=== PATIENT | male | born 1955 | race Caucasian/White ===

== ENCOUNTER 2020-08-12 14:44 | Outpatient (REF) | payer OTHER, SELFPAY ==
[2020-08-12 21:15] LABS: Calculated LDL 177 mg/dL (<100); Cholesterol 249 mg/dL (<200); HDL Cholesterol 47 mg/dL (40-60); Triglyceride 125 mg/dL (<150)
[2020-08-15 10:53] LABS: PSA, Screening 1.2 ng/mL (0.0-4.5)
== END 2020-08-12 15:04 ==
LOC: LBN 14:44
PROVIDERS: PCP Emergency Medicine; Visit Provider Emergency Medicine
DX: E78.5 Hyperlipidemia, unspecified (principal); Z12.5 Encounter for screening for malignant neoplasm of prostate
CPT/HCPCS: 80061; 84153

== ENCOUNTER 2021-08-15 18:38 | Outpatient (REF) | payer OTHER, SELFPAY ==
[2021-08-15 20:10] LABS: Calculated LDL 169 mg/dL (<100); Cholesterol 245 mg/dL (<200); HDL Cholesterol 52 mg/dL (40-60); Triglyceride 120 mg/dL (<150)
== END 2021-08-15 18:39 | disposition home or self-care (01) ==
LOC: LBN 18:38
PROVIDERS: PCP Emergency Medicine; Referring Provider Emergency Medicine; Visit Provider Emergency Medicine
DX: E78.5 Hyperlipidemia, unspecified (principal)
CPT/HCPCS: 80061

== ENCOUNTER 2022-02-24 06:42 | Emergency (ER) | payer MEDICARE, SELFPAY ==
[2022-02-24] VITALS (47 sets, daily range): BP systolic 100–161; BP diastolic 57–103; PULSE 42–87; RESP 8–25; TEMP 36.3; O2SAT 93–100
--- NOTE | 2022-02-24 06:30 | RT.EKG_ITS ---
APPROVED REPORT Exam: Resting ECG Reason for Exam: chest pain Patient Location: E HR:71 bpm ECG Measurements Heart Rate 71 AXIS FL 162 P 59 QRSd 112 QRS 49 QT 421 T 74 QTc 456 Conclusion Sinus rhythm...normal P axis, V-rate 60- 99 sinus rhtyhm, normal axis, non ischemic
--- NOTE | 2022-02-24 06:45 | DI.RAD_ITS ---
Exam(s) XR PORTABLE CHEST AP EXAM: XR PORTABLE CHEST AP CLINICAL HISTORY: chest pain, left sided TECHNIQUE: 2D digital imaging was performed. COMPARISON: CR CHEST 2 VIEWS PA,LAT from 02/13/2016 FINDINGS: LUNGS: Suboptimally inflated but clear. No pleural abnormality seen. HEART: Normal. MEDIASTINUM: Normal. BONES: Unremarkable. IMPRESSION: No acute pulmonary findings. DATA REPOSITORY: RADIATION DOSE DELIVERED:
--- NOTE | 2022-02-24 07:02 | W.ED.GENAD ---
Discharge Plan Disposition Patient Disposition: STILL A PATIENT Condition: Stable Discharge Details Chief Complaint: Chest Pain Primary Care Provider: Nick Alfonso ED Provider: Alireza Barber Home Meds and New Rx's Prescriptions: No Action multivitamin [Daily Multi-Vitamin] 1 EACH tablet 2 ea PO DAILY 0RF omeprazole magnesium [Prilosec OTC] 20 MG tablet,delayed release (DR/EC) 1 tab PO DAILY Qty: 90 4RF tadalafil [Cialis] 10 MG tablet 10 mg PO PRN Qty: 8 12RF amlodipine 5 mg tablet 2.5 mg PO DAILY Qty: 45 4RF hydrochlorothiazide 25 mg tablet 25 mg PO DAILY Qty: 90 3RF sertraline 50 mg tablet 75 mg PO DAILY Qty: 135 3RF Medical Decision Making 66-year-old male history of hypertension hyperlipidemia, moderate risk heart score presents with left anterior chest discomfort for the last day radiating to left arm, denies nausea diaphoresis vomiting or trouble breathing. No history of PE or IN. No peripheral edema. Lung sounds clear bilaterally no respiratory distress, equal radial pulses bilaterally, hypertensive on arrival; consider ACS skin skeletal versus anxiety versus less likely pneumonia or pneumothorax versus less likely dissection. Nitro and aspirin to be ordered, labs chest x-ray EKG, 7: 49 patient was given nitro did drop his blood pressure to 100 systolic, became pale and presyncopal, started improved blood pressure on his own got much better after fluid bolus. Patient does describe chest pain going to his back, CTA has been ordered with a protocol to assess for both dissection and PE. HPI General Date/Time Provider Initiated Documentation: 02/24/22 06:49. HPI Narrative: 66-year-old male history of hypertension presents with over 1 day of left-sided chest discomfort rating to left arm, denies trouble breathing nausea vomiting abdominal pain or other systemic symptoms. Denies history of IN. Related Data Home Medications Medication Instructions Recorded Confirmed multivitamin (Daily Multi-Vitamin) 2 ea PO DAILY 05/15/13 02/24/22 omeprazole magnesium 20 mg 1 tab PO DAILY #90 tab-cap 09/21/14 02/24/22 tablet,delayed release (Prilosec OTC) tadalafil 10 mg tablet (Cialis) 10 mg PO PRN #8 tab 12/11/17 08/12/20 amlodipine 5 mg tablet 2.5 mg PO DAILY #45 tab-cap 03/29/21 02/24/22 hydrochlorothiazide 25 mg tablet 25 mg PO DAILY #90 tab-cap 03/29/21 02/24/22 sertraline 50 mg tablet 75 mg PO DAILY #135 tab-cap 11/02/21 02/24/22 Previous Rx's Medication Instructions Recorded tadalafil 10 mg tablet (Cialis) 10 mg PO PRN #8 tab 12/11/17 amlodipine 5 mg tablet 2.5 mg PO DAILY #45 tab-cap 03/29/21 hydrochlorothiazide 25 mg tablet 25 mg PO DAILY #90 tab-cap 03/29/21 sertraline 50 mg tablet 75 mg PO DAILY #135 tab-cap 11/02/21 Allergies Allergy/AdvReac Type Severity Reaction Status Date / Time Penicillins Allergy Severe HIVES Verified 02/24/22 07:01 General Stated Complaint: Chest Pain REBECCA: 2 Review of Systems Narrative: Review of Systems Constitutional: negative Eyes: negative ENT: negative Cardiovascular: Chest pain Respiratory: negative Gastrointestinal: negative : negative Musculoskeletal: negative Skin: negative Neurologic: negative Psych: negative PFSH All Active Problems (Updated 12/18/21 @ 10:17 by Sarah Oscar RN) COVID-19 (Acute ~12/16/21) Cat bite (Acute) Elevated lipids (Acute) Rash (Acute) Status post cholecystectomy (Acute) Seborrheic dermatitis (Chronic) Hiatal hernia (Chronic) Gastroesophageal reflux disease with esophagitis (Chronic) Family hx of prostate cancer (Chronic) Degeneration of lumbar intervertebral disc (Chronic) Chest pain (Chronic 07/12/13) Ruled out for IN by serial enzymes. Norml EGK. Modrate cardiac risk factor profile. Benign hypertension (Chronic) Cole's esophagus (Chronic) Osteoarthritis of spine (Chronic) Hearing loss (Chronic) Left sie. Allergy to penicillin (Chronic) History of surgery (Chronic) Cholecystectomy in the 1980s. Surgical History (Updated 08/18/19 @ 08:24 by Víctor Coon) Cholecystectomy (~1987) Family History (Updated 08/15/21 @ 15:51 by Lulu Mejia) Mother Heart disease Lymphoma Father , 80 Essential hypertension Depression Hyperlipidemia Neoplasm SKIN Stroke Grandfather Neoplasm COLON Grandmother Depression Social History (Updated 08/15/21 @ 15:52 by Lulu Benitez Smoking/Tobacco Use Status: Never Second Hand Exposure: Yes Smoking risk assessment performed?: Yes Alcohol Intake: current Alcohol Intake frequency: a few times a week Alcohol type: beer and hard liquor Drug use: Never Substance use type: does not use Caregiver/Support person: No Household members: spouse Communication Needs: Hard of Hearing Do you need help understanding health information?: Rarely 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 Pets and animals: Yes Pets and animals: cat(s) Sexually active: Yes Do you think of yourself as: straight/heterosexual Current gender identity: male What is your relationship status?: How often do you talk on the phone with friends or family?: twice per week How often do you get together with friends or relatives?: once per week How often do you attend pentecostalism or uatsdin services?: decline to answer Do you belong to any clubs or organized social groups?: no Panel score (0-1 are the most socially isolated patients): 2 Kristina/Presybeterian: Taoist Special kristnia needs: No Seatbelt use: always Helmet use: Yes Helmet use: always Drive intox or ride w/intox straddle bug driver: No Do you feel safe at home: Yes Do you feel safe in your relationship?: Yes Exam Narrative Exam Narrative: Physical Examination General: alert, awake, cooperative, resting comfortably, no acute distress HEENT: normocephalic, atraumatic; PERRL, EOM intact, conjunctiva normal; no nasal discharge; moist mucous membranes, oral and pharyngeal mucosa normal, tolerating secretions Neck: supple, trachea midline; full ROM Chest: normal to inspection Respiratory: normal respiratory effort, speaking in full sentences, clear to auscultation, no wheezing, rales or rhonchi Cardiac: regular rate, regular rhythm, S1S2 intact, no murmurs rubs or gallops; equal radial pulses bilaterally GI: abdomen soft, non-tender, non-distended; no palpable mass or hepatosplenomegaly Warm well perfused, no peripheral edema Skin: no lesions, rashes or trauma appreciated Neuro: AAOx3, normal speech, moving all extremities Extremities: Warm well perfused no peripheral edema Psych: Appropriate mood and affect Course Vital Signs Vital signs: Vital Signs Temperature 36.3 C L 02/24/22 06:45 Pulse 69 02/24/22 06:45 Respiratory Rate 18 02/24/22 06:45 Blood Pressure 153/102 H 02/24/22 06:45 Pulse Oximetry 95 02/24/22 06:45 Temperature 36.3 C L 02/24/22 06:45 Temperature Source Temporal Artery Scan 02/24/22 06:45 Pulse 69 02/24/22 06:45 Respiratory Rate 13 02/24/22 06:48 Respiratory Effort Non-Labored 02/24/22 06:48 Respiratory Depth Normal 02/24/22 06:48 Respiratory Pattern Normal 02/24/22 06:48 Blood Pressure 153/102 H 02/24/22 06:45 Blood Pressure Position Supine 02/24/22 06:45 Pulse Oximetry 95 02/24/22 06:45 Oxygen Delivery Method Room Air 02/24/22 06:45 Oxygen Flow Rate 0 02/24/22 06:45 Pain Level 7 02/24/22 06:48 PAWSS Have you Been Recently Intoxicated or Drunk Within the Last 30 days?: No Have you Ever Experienced Previous Episodes of Alcohol Withdrawal?: No Have you ever Experienced Withdrawal Seizures?: No Have you ever Experienced Delirium Tremens(DT)s?: No Have you ever undergone Alcohol Rehabilitation Treatment (i.e, inpt ot outpatient treatment programs)?: No Have you ever Experienced Blackouts?: No Have you ever Combined Alcohol with other Downers within the last 90 days?: No Have you ever Combined Alcohol with any other Substance of Abuse during the last 90 days?: No Positive Blood Alcohol level on Presentation? [PCS.BAL]: No Evidence of Increased Autonomic Activity (i.e. HR>120, tremor, sweating, agitation, nausea)?: No Result: 0
[2022-02-24] MEDS: Aspirin 325 MG TAB PO (07:07)
[2022-02-24] MEDS: nitroGLYcerin 0.4 MG TAB SL (07:07)
[2022-02-24 07:10] LABS: Abs Immature Grans 0.01 10^3/uL (0.0-0.06); Absolute Basophil Count 0.03 10^3/uL (0.0-0.2); Absolute Eosinophil Count 0.14 10^3/uL (0.0-0.7); Absolute Lymphocyte Count 1.66 10^3/uL (1.2-3.4); Absolute Monocyte Count 0.49 10^3/uL (0.1-0.8); Absolute Neutrophil Count 2.96 10^3/uL (1.2-6.7); Basophils % 0.6; Eosinophils % 2.6; HCT 39.2 % (40.0-50.0); Immature Grans % 0.2; Lymphocytes % 31.4; MCH 28.7 pg (27.0-33.0); MCHC 33.2 % (32.0-36.0); MCV 86.5 fL (80-95); MPV 9.3 fL (8.0-11.0); Monocytes % 9.3; Neutrophils % 55.9; Nucleated RBC 0 %; Platelet Count 307 10^3/uL (130-400); RBC 4.53 10^6/uL (4.36-5.78); RDW 13.2 % (11.8-14.1); RDW-SD 41.3 fL; WBC 5.29 10^3/uL (4.4-10.8)
[2022-02-24] MEDS: Normal Saline 500 ML 1000 ML IV (07:15)
--- NOTE | 2022-02-24 07:15 | DI.CT_ITS ---
Exam(s) CT THORAX CTA EXAM: CT THORAX CTA CLINICAL HISTORY: chest pain to back, hypertense. TECHNIQUE: Imaging Protocol: Axial CT angiography was performed with multi-slice acquisition and mu lti-planar and/or 3D reconstructions. CONTRAST MATERIAL: Intravenous: Omnipaque 350 Contrast volume:99 ml COMPARISON: CR,XR XR PORTABLE CHEST AP from 02/24/2022 FINDINGS: Pulmonary Arteries: No evidence of filling defect to suggest pulmonary emboli. Tracheobronchial tree: Patent where visualized. Mediastinum and Rebeca: No dominant adenopathy or fluid collection. Pulmonary parenchyma: Expiratory changes. No consolidation or dominant measurable mass. Pleura: No effusion or pneumothorax. Heart: The heart is mildly dilated. Mild coronary artery calcifications are seen. Aorta: Thoracic aorta non-dilated. No aneurysm. No dissection. Upper abdomen: Status post cholecystectomy. Bones: Degenerative changes with flowing osteophytes. IMPRESSION: No evidence of pulmonary embolism or other acute abnormality.. RADIATION DOSE DELIVERED: 411.96mGy.cm Total DLP DATA REPOSITORY: All CT scans at this facility are submitted to the National Radiology Data Registry (NRDR) Dose Index Registry (DIR) with the [employer] (A[employer]). RADIATION OPTIMIZATION: All CT scans at this facility use at least one of these dose optimization te chniques: automated exposure control; mA and/or kV adjustment per patient size (includes targeted exa ms where dose is matched to clinical indication); or iterative reconstruction.
[2022-02-24 07:32] LABS: PTT Activated 23.5 sec (21.0-27.5)
[2022-02-24 07:33] LABS: ALT 56 U/L (16-63); AST 29 U/L (15-37); Alkaline Phosphatase 72 U/L (46-116); Anion Gap 7.3 mmol/L (3-11); BUN 21 mg/dL (7-18); Bilirubin, Total 0.4 mg/dL (0.2-1.0); CO2 28.7 mmol/L (21.0-32.0); CREATININE 1.1 mg/dL (0.70-1.30); Chloride 106 mmol/L (98-107); Glucose 135 mg/dL (74-106); NT-proBNP 106 pg/mL (<300); Potassium 3.8 mmol/L (3.5-5.1); Sodium 142 mmol/L (136-145); Total Protein 7.6 g/dL (6.4-8.2); Troponin I < 50 ng/L (<or=60)
--- NOTE | 2022-02-24 07:45 | RT.EKG_ITS ---
APPROVED REPORT Exam: Resting ECG Reason for Exam: chest pain Patient Location: E HR:63 bpm ECG Measurements Heart Rate 63 AXIS TN 193 P 58 QRSd 109 QRS 46 QT 434 T 99 QTc 443 Conclusion Sinus rhythm...normal P axis, V-rate 60- 99 Inferior infarct, acute...ST>0.10mV, T upright, II III aVF. Sinus. ++INFERIOR STEMI++. Reciprocal depressions in I and aVL. I have reviewed and interpreted ECG and agree with software generated interpretation.
[2022-02-24] MEDS: MORPHine 4 MG/ML SYR 2 MG IVP (07:50)
[2022-02-24] MEDS: Ondansetron 4 MG/2 ML VIAL IVP (07:50)
--- NOTE | 2022-02-24 08:19 | W.EDPROG ---
Date of service: 02/24/22 Time of Service: 08:00 Medical Decision Making 0800 -- Please see Dr. Barber's note for initial presentation, exam, and plan. Case endorsed to follow-up on labs and imaging and final disposition. 66yo M with a history of hypertension and hyperlipidemia who presents for left-sided chest pain with radiation to his back and left arm since yesterday afternoon. Denies any tearing or ripping sensation. He denies any associated nausea, vomiting, shortness of breath or dizziness. He took 2 tabs of strength Tylenol this morning but otherwise not taking any medication. He denies any aggravating or alleviating factors and states his pain started yesterday afternoon while sitting at rest. does endorse that his pain worsened this morning. Shortly after my arrival to the ED, patient noted to have increased ST elevation on the monitor. Repeat EKG done at this time's notes an inferior STEMI. First troponin negative. Normal BNP. Plavix and heparin bolus and drip ordered. Portable chest x-ray does appear to show a widened mediastinum. Virtual radiology read pending. Will hold heparin bolus and drip at this time pending scan. Will send for stat CT chest. Patient is endorsing increased pain, another dose of morphine 2 mg IV ordered. He remains hemodynamically stable with a heart rate of 70s, BP 113/72. 0820 --discussed with [facility] cardiology agree with holding heparin bolus and drip at this time pending scan. No beta blockers or nitro at this time. 0845 --CTA read still pending, vrad noting higher than average turnaround times -- d/w again with [facility] cardiology -- continue to hold on heparin pending CTA read. 09 -- long delay in obtaining CTA read due to higher turnaround times for vrad. Able to speak with virtual radiologist Dr. Hubbard while he was reviewing the CT and there is no dissection or PE. Heparin bolus and gtt initiated. Discussed again with [facility] cardiology and agree with proceeding with heparin bolus and drip and would like Half Dose lytics. Patient denies any history of intracranial hemorrhage, gastrointestinal bleed, anticoagulation or any other contraindications. Risks versus benefits of lytics discussed with patient and he is agreeable with proceeding with lytics at this time. He remains hemodynamically stable. He is still complaining of left-sided chest pain. Will order dose of Dilaudid. A dose of 25mg TNKase ordered. 0935 --patient heart rate decreased to as low as 35. I was speaking with [facility] cardiology at this time and they declined any beta-tatiana or atropine. They would like the other dose of half dose lytics for a total of full dose lytics at 50 mg IV. His blood pressure has remained stable. He states his pain is improved. He was not yet given the Dilaudid so we will hold on this at this time. Oxygen saturation 97% and placed on 2 L nasal cannula oxygen. Sat patient upright in the bed and heart rate increased to mid 60s. Repeat EKG obtained and notes significant improvement in ST elevation and reciprocal depressions. 0955 -- [facility] here to transport pt. Pt remained hemodynamically stable prior to leaving the ED. Medical Records Medical records reviewed: Yes I reviewed the patient's medical records. Medical records narrative: PMH: HTN, Hyperlipidemia SURG: Cholecystectomy FH: Denies any h/o sudden cardiac SH: Denies tobacco, ETOH, drug use Imaging Data Radiologic Study: Radiologist's impression: XR Chest Exam date and time: 02/24/2022 7:24 AM Age: 66 years old Clinical indication: Pain; Left-sided; Patient HX: Concerned for widened mediastinum -- PT is an inferior stemi TECHNIQUE: Imaging protocol: XR of the chest. Views: 1 view. COMPARISON: CR CHEST 2 VIEWS PA,LAT 02/13/2016 11:14 AM FINDINGS: Lungs: Unremarkable. No consolidation. Pleural spaces: Unremarkable. No pleural effusion. No pneumothorax. Heart/Mediastinum: Unremarkable. No cardiomegaly. Bones/joints: Unremarkable. IMPRESSION: No acute findings. CTA Chest With Contrast Exam date and time: 02/24/2022 8:25 AM Age: 66 years old Clinical indication: Other: Chest pain to back, hypertense; Patient HX: Chest pain to back, hypertensive -- inferior stemi TECHNIQUE: Imaging protocol: Computed tomographic angiography of the chest with contrast. 3D rendering (Not supervised by radiologist): MIP and/or 3D reconstructed images were created by the technologist. Radiation optimization: All CT scans at this facility use at least one of these dose optimization techniques: automated exposure control; mA and/or kV adjustment per patient size (includes targeted exams where dose is matched to clinical indication); or iterative reconstruction. Contrast material: OMNIPAQUE 350; Contrast volume: 99 ml; Contrast route: INTRAVENOUS (IV);? COMPARISON: CR XR PORTABLE CHEST AP 02/24/2022 7:24 AM FINDINGS: Pulmonary arteries: Normal. No pulmonary emboli. Aorta: Unremarkable. No aortic aneurysm. No aortic dissection. Lungs: Unremarkable. No consolidation. No masses. Pleural spaces: Unremarkable. No pneumothorax. No pleural effusion. Heart: The heart is enlarged. There is mild coronary artery calcification. Lymph nodes: Unremarkable. No enlarged lymph nodes. Bones/joints: Chronic degenerative disease in the spine. No acute fracture. Soft tissues: Unremarkable. IMPRESSION: 1. No evidence of aortic aneurysm/dissection or pulmonary embolus. 2. Cardiomegaly. Mild coronary artery calcification. Lab Data Lab results reviewed: Yes I reviewed the patient's lab results. Labs: Laboratory Tests Range/Units 02/24/22 02/24/22 02/24/22 07:02 07:02 07:02 WBC (4.4-10.8) 10^3/uL 5.29 RBC (4.36-5.78) 10^6/uL 4.53 Hgb (13.5-17.5) g/dL 13.0 L Hct (40.0-50.0) % 39.2 L MCV (80-95) fL 86.5 MCH (27.0-33.0) pg 28.7 MCHC (32.0-36.0) % 33.2 RDW (11.8-14.1) % 13.2 Plt Count (130-400) 10^3/uL 307 MPV (8.0-11.0) fL 9.3 Immature Gran % 0.2 Neutrophils % 55.9 Lymphocytes % 31.4 Monocytes % 9.3 Eosinophils % 2.6 Basophils % 0.6 Nucleated RBC % % 0 Absolute Neutrophils (1.2-6.7) 10^3/uL 2.96 Absolute Lymphocytes (1.2-3.4) 10^3/uL 1.66 Absolute Monocytes (0.1-0.8) 10^3/uL 0.49 Absolute Eosinophils (0.0-0.7) 10^3/uL 0.14 Absolute Basophils (0.0-0.2) 10^3/uL 0.03 PT (9.3-11.0) sec 10.0 INR (0.9-1.1) 1.0 APTT (21.0-27.5) sec 23.5 Sodium (136-145) mmol/L 142 Potassium (3.5-5.1) mmol/L 3.8 Chloride (98-107) mmol/L 106 Carbon Dioxide (21.0-32.0) mmol/L 28.7 Anion Gap (3-11) mmol/L 7.3 BUN (7-18) mg/dL 21 H Creatinine (0.70-1.30) mg/dL 1.1 Estimated GFR/1.73 m2 (mL/min/1.73m2) >= 60.00 Glucose (74-106) mg/dL 135 H Calcium (8.5-10.1) mg/dL 9.0 Total Bilirubin (0.2-1.0) mg/dL 0.4 AST (15-37) U/L 29 ALT (16-63) U/L 56 Alkaline Phosphatase (46-116) U/L 72 Troponin I (<or=60) ng/L < 50 NT-Pro-B Natriuret Pep (<300) pg/mL 106 Total Protein (6.4-8.2) g/dL 7.6 Albumin (3.4-5.0) g/dL 4.0 ECG Data Attestation: I personally reviewed and interpreted this ECG (s) as follows: Interpretation: #1 -- rate of 71, sinus, questionable AK depression and inferior leads but no obvious ST elevation in inferior leads. T wave inversions in aVL. No STEMI. #2 -- rate of 63, sinus, II, III, aVF, sinus, [address] elevation noted in 2, 3, aVF, reciprocal depressions noted in 1 and aVL. Consistent with an inferior STEMI. #3 -- rate of 35, sinus, PVCs, near resolution of ST elevation in inferior leads and reciprocal depressions in lateral leads. Exam Const General: cooperative and healthy appearing Orientation: alert, awake and oriented x3 HENMT Head: normal to inspection Ears: hearing grossly normal bilaterally, external ears normal and TM's normal bilaterally General nose exam: external nose normal Face and sinus: normal facial exam Mouth: oral mucosae normal Teeth and gingiva: dentition normal Throat: posterior oropharynx normal Eyes General: appearance normal, both eyes and all related structures Eyelids: eyelids normal Pupils: PERRL EOM: EOM intact bilaterally Neck Neck: normal visual inspection Lymphatic: no lymphadenopathy noted Chest Chest: normal inspection of the chest Resp Effort & Inspection: normal respiratory effort and able to speak in complete sentences Auscultation: clear to auscultation bilaterally Cardio Rate: regular rate Rhythm: regular rhythm GI Inspection: normal to inspection Palpation: soft, not firm, no guarding, no hepatosplenomegaly, no masses and nontender Auscultation: normal bowel sounds Back/Spine/Pelvis Back: no CVA tenderness Thoracic/Lumbar Spine: thoracic and lumbar spine normal to inspection Skin General skin exam: no rashes or lesions noted Neuro General: patient alert and patient awake Cognition: normal cognition Speech: speech normal Gait: normal gait Motor: muscle tone normal throughout Sensory Exam: no sensory deficits noted Extrem General: normal to inspection, full ROM and capillary refill normal Psych Appearance: grossly normal Mental Status: mental status grossly normal Speech and Movement: speech and movement normal Affect: normal affect Thought Process: normal Critical Care Time Critical Care Time Critical Care Time: Yes Total Critical Care Time: 90 Attestation: I spent 90 minutes of critical care time with this patient. This does not include time spent on separately reported billable procedures. Sign Out Sign Out Data: Sign Out Comment: chest pain to back, HTN, awaiting second trop and CTA chest; if negative and asymptomatic, dc home Last updated by Alireza Barber MD at 02/24/22 07:57 Discharge Plan Disposition Patient Disposition: [facility] Condition: Serious Discharge Details Clinical Impression: Acute ST elevation myocardial infarction (STEMI) of inferior wall Primary Care Provider: Nick Alfonso ED Provider: Ellie Liu Home Meds and New Rx's Prescriptions: No Action multivitamin [Daily Multi-Vitamin] 1 EACH tablet 2 ea PO DAILY 0RF omeprazole magnesium [Prilosec OTC] 20 MG tablet,delayed release (DR/EC) 1 tab PO DAILY Qty: 90 4RF tadalafil [Cialis] 10 MG tablet 10 mg PO PRN Qty: 8 12RF amlodipine 5 mg tablet 2.5 mg PO DAILY Qty: 45 4RF hydrochlorothiazide 25 mg tablet 25 mg PO DAILY Qty: 90 3RF sertraline 50 mg tablet 75 mg PO DAILY Qty: 135 3RF Discharge Data Discharge Date/Time-TO BE ENTERED AT DEPARTURE: 02/24/22 09:59
[2022-02-24] MEDS: Clopidogrel 300 MG TAB PO (08:20)
[2022-02-24] MEDS: Omnipaque 350 MG/ML 100 ML BTL IJ (08:32)
[2022-02-24] MEDS: MORPHine 10 MG/ML VIAL 2 MG IVP (08:45)
--- NOTE | 2022-02-24 09:03 | DI.VRAD_ITS ---
PROCEDURE INFORMATION: Exam: XR Chest Exam date and time: 02/24/2022 7:24 AM Age: 66 years old Clinical indication: Pain; Left-sided; Patient HX: Concerned for widened mediastinum -- PT is an inferior stemi TECHNIQUE: Imaging protocol: XR of the chest. Views: 1 view. COMPARISON: CR CHEST 2 VIEWS PA,LAT 02/13/2016 11:14 AM FINDINGS: Lungs: Unremarkable. No consolidation. Pleural spaces: Unremarkable. No pleural effusion. No pneumothorax. Heart/Mediastinum: Unremarkable. No cardiomegaly. Bones/joints: Unremarkable. IMPRESSION: No acute findings. Dictated and Authenticated by: Ry Hubbard MD. Ordering:BEATRIZ Lay MD
[2022-02-24] MEDS: Normal Saline 1,000 ML 1000 ML IV (09:07)
--- NOTE | 2022-02-24 09:09 | DI.VRAD_ITS ---
PROCEDURE INFORMATION: Exam: CTA Chest With Contrast Exam date and time: 02/24/2022 8:25 AM Age: 66 years old Clinical indication: Other: Chest pain to back, hypertense; Patient HX: Chest pain to back, hypertensive -- inferior stemi TECHNIQUE: Imaging protocol: Computed tomographic angiography of the chest with contrast. 3D rendering (Not supervised by radiologist): MIP and/or 3D reconstructed images were created by the technologist. Radiation optimization: All CT scans at this facility use at least one of these dose optimization techniques: automated exposure control; mA and/or kV adjustment per patient size (includes targeted exams where dose is matched to clinical indication); or iterative reconstruction. Contrast material: OMNIPAQUE 350; Contrast volume: 99 ml; Contrast route: INTRAVENOUS (IV); COMPARISON: CR XR PORTABLE CHEST AP 02/24/2022 7:24 AM FINDINGS: Pulmonary arteries: Normal. No pulmonary emboli. Aorta: Unremarkable. No aortic aneurysm. No aortic dissection. Lungs: Unremarkable. No consolidation. No masses. Pleural spaces: Unremarkable. No pneumothorax. No pleural effusion. Heart: The heart is enlarged. There is mild coronary artery calcification. Lymph nodes: Unremarkable. No enlarged lymph nodes. Bones/joints: Chronic degenerative disease in the spine. No acute fracture. Soft tissues: Unremarkable. IMPRESSION: 1. No evidence of aortic aneurysm/dissection or pulmonary embolus. 2. Cardiomegaly. Mild coronary artery calcification. Dictated and Authenticated by: Ry Hubbard MD. Ordering:BEATRIZ Lay MD
--- NOTE | 2022-02-24 09:15 | RT.EKG_ITS ---
APPROVED REPORT Exam: Resting ECG Reason for Exam: chest pain Patient Location: E HR:35 bpm ECG Measurements Heart Rate 35 AXIS NH 164 P 33 QRSd 117 QRS 41 QT 488 T 54 QTc 366 Conclusion Sinus bradycardia...rate< 60 Ventricular premature complex...V complex w/ short R-R interval Nonspecific intraventricular conduction delay...QRSd >115mS, not LBBB/RBBB Inferior infarct, old...Q >35mS, II III aVF. Sinus elizabeth. PVC. 1mm ST elevation in III. Near normalization of inferior STEMI and reciprocal depres sions. I have reviewed and interpreted ECG and agree with software generated interpretation.
[2022-02-24] MEDS: Tenecteplase 50 MG KIT 25 MG IVP ×2 (09:26→09:47)
--- NOTE | 2022-03-14 07:54 | NUR.NOTE ---
Nursing Note: In patient chart for QA statistics for ED Committee meeting. Ceci Rosales
== END 2022-02-24 09:59 | disposition short-term general hospital (02) ==
PROVIDERS: Emergency Medicine; Emergency Provider Physician Assistant; PCP Family Medicine
DX: I21.4 Non-ST elevation (NSTEMI) myocardial infarction (principal); I10 Essential (primary) hypertension; E78.5 Hyperlipidemia, unspecified
CPT/HCPCS: 36415; 71275; 80053; 93005; 96361; 96365; 96374; 96375; 96376; 99285; 71045; 83880; 84484; 85025; 85610; 85730; 93010; J2270; J2405; J3101; J3490

== ENCOUNTER 2022-03-30 09:00 | Outpatient (RCR) | payer MEDICARE, SELFPAY | END 2022-03-31 23:59 | disposition home or self-care (01) | LOC: CR 09:00 | PROVIDERS: PCP Nurse Practitioner; Visit Provider Internal Medicine Cardiovascular Disease | DX: Z51.89 Encounter for other specified aftercare (principal); I25.2 Old myocardial infarction; Z95.5 Presence of coronary angioplasty implant and graft | CPT/HCPCS: S9472 ==

== ENCOUNTER 2022-04-10 02:10 | Outpatient (CLI) | payer MEDICARE, SELFPAY ==
[2022-04-10 12:46] LABS: Calculated LDL 59 mg/dL (<100); Cholesterol 115 mg/dL (<200); HDL Cholesterol 42 mg/dL (40-60); Triglyceride 72 mg/dL (<150)
== END 2022-04-10 02:11 | disposition home or self-care (01) ==
LOC: LOS 02:10
PROVIDERS: PCP Nurse Practitioner; Visit Provider Emergency Medicine
DX: E78.5 Hyperlipidemia, unspecified (principal); R07.9 Chest pain, unspecified
CPT/HCPCS: 36415; 80061

== ENCOUNTER 2022-04-25 09:00 | Outpatient (RCR) | payer MEDICARE, SELFPAY | END 2022-05-01 23:59 | disposition home or self-care (01) | LOC: CR 09:00 | PROVIDERS: PCP Nurse Practitioner; Visit Provider Internal Medicine Cardiovascular Disease | DX: Z51.89 Encounter for other specified aftercare (principal); I25.2 Old myocardial infarction; Z95.5 Presence of coronary angioplasty implant and graft | CPT/HCPCS: S9472 ==

== ENCOUNTER 2022-05-04 09:00 | Outpatient (RCR) | payer MEDICARE, SELFPAY | END 2022-05-31 23:59 | disposition home or self-care (01) | LOC: CR 09:00 | PROVIDERS: PCP Nurse Practitioner; Visit Provider Internal Medicine Cardiovascular Disease | DX: I25.2 Old myocardial infarction (principal); Z51.89 Encounter for other specified aftercare; Z95.5 Presence of coronary angioplasty implant and graft | CPT/HCPCS: S9472 ==

== ENCOUNTER 2022-06-15 09:00 | Outpatient (RCR) | payer MEDICARE, SELFPAY | END 2022-07-01 23:59 | disposition home or self-care (01) | LOC: CR 09:00 | PROVIDERS: PCP Nurse Practitioner; Referring Provider Internal Medicine Cardiovascular Disease; Visit Provider Internal Medicine Cardiovascular Disease | DX: Z51.89 Encounter for other specified aftercare (principal); I25.2 Old myocardial infarction; Z95.5 Presence of coronary angioplasty implant and graft | CPT/HCPCS: S9472 ==

== ENCOUNTER 2022-08-27 08:58 | Outpatient (RCR) | payer MEDICARE, SELFPAY | END 2022-08-31 23:59 | disposition home or self-care (01) | LOC: CR 08:58 | PROVIDERS: PCP Nurse Practitioner; Referring Provider Internal Medicine Cardiovascular Disease; Visit Provider Internal Medicine Cardiovascular Disease | DX: Z51.89 Encounter for other specified aftercare (principal); I25.2 Old myocardial infarction; Z95.5 Presence of coronary angioplasty implant and graft | CPT/HCPCS: S9472 ==

== ENCOUNTER 2022-09-03 09:00 | Outpatient (RCR) | payer MEDICARE, SELFPAY | END 2022-10-01 23:59 | disposition home or self-care (01) | LOC: CR 09:00 | PROVIDERS: PCP Nurse Practitioner; Referring Provider Internal Medicine Cardiovascular Disease; Visit Provider Internal Medicine Cardiovascular Disease | DX: Z51.89 Encounter for other specified aftercare (principal); I25.2 Old myocardial infarction; Z95.5 Presence of coronary angioplasty implant and graft | CPT/HCPCS: S9472 ==

== ENCOUNTER 2023-05-03 00:15 | Outpatient (CLI) | payer MEDICARE, SELFPAY ==
--- NOTE | 2023-05-03 07:00 | DI.MRI_ITS ---
Exam(s) MR ANGIO BRAIN WO CLINICAL HISTORY: recurrent left sided facial pain,? brain mass,dizziness,facial weakness,r42. TECHNIQUE: 3D feld-pi-lojmga study was performed without contrast. COMPARISON: None. FINDINGS: Carotid Arteries: Petrous: Normal. Cavernous: Normal. Cerebral: Normal. Middle Cerebral Arteries: Right: No aneurysm or significant stenosis. Left: No aneurysm or significant stenosis. Anterior Cerebral Arteries: Right: No aneurysm or significant stenosis. Left: No aneurysm or significant stenosis. Posterior cerebral arteries: Right: No aneurysm or significant stenosis Left: No aneurysm or significant stenosis Basilar Artery: No aneurysm or significant stenosis. Small Vessels: No evidence of beading. IMPRESSION: Normal MRA examination of the [place] of [place]. No evidence of aneurysm or AV malformation. DATA REPOSITORY:
--- NOTE | 2023-05-03 07:00 | DI.MRI_ITS ---
Exam(s) MR BRAIN WO/W EXAM: MR BRAIN WO/W CLINICAL HISTORY: recurrent left sided facial pain,dizziness,facial weakness,r42. TECHNIQUE: Multiplanar multisequence MRI of the brain was performed. CONTRAST MATERIAL: IV Contrast: 20 ML of Dotarem contrast administered. COMPARISON: MR MR ANGIO BRAIN WO from 05/03/2023 FINDINGS: VENTRICLES AND EXTRA AXIAL SPACES: Normal in size and morphology for the patient's age. HEMORRHAGE: None. CEREBRAL PARENCHYMA: No focus of restricted diffusion to suggest acute infarct. No space-occupying le catrachito identified. MIDLINE SHIFT: None. BRAINSTEM/CEREBELLUM: Normal. CALVARIUM: Normal. ENHANCEMENT: No suspicious enhancement identified. VISUALIZED PARANASAL SINUSES/MASTOIDS: Mucous retention cyst at the floor of the left maxillary sinus . OTHER FINDINGS: None. IMPRESSION: Unremarkable MRI of the brain. DATA REPOSITORY:
[2023-05-03 08:39] LABS: Estimated GFR 83.01 (mL/min/1.73m2)
[2023-05-03] MEDS: Gadoterate meglumine 20 ML SYRINGE IVP (08:44)
[2023-05-03] MEDS: Normal Saline Flush 10 ML SYR IJ (08:45)
== END 2023-05-03 00:35 ==
LOC: DI 00:15
PROVIDERS: PCP Nurse Practitioner Family; Visit Provider Nurse Practitioner Family
DX: G51.8 Other disorders of facial nerve (principal); R29.810 Facial weakness; R42 Dizziness and giddiness
CPT/HCPCS: 70544; 70553; 82565

== ENCOUNTER → 2023-08-29 14:19 | Outpatient (BNVA) | payer MEDICARE, SELFPAY | PROVIDERS: PCP Nurse Practitioner Family; Referring Provider Nurse Practitioner Family; Visit Provider Physical Therapy Assistant | DX: Z12.11 Encounter for screening for malignant neoplasm of colon (principal); Z80.0 Family history of malignant neoplasm of digestive organs ==

== ENCOUNTER 2023-10-31 07:48 | Day surgery (SDC) | payer MEDICARE, SELFPAY ==
--- NOTE | 2023-10-30 19:00 | W.PREOPHP ---
Assessment and Plan Assessment and plan (1) Screen for colon cancer: Status: Acute Assessment and plan: We reviewed the plan for screening colonoscopy today, and his role in routine health maintenance as well as the risks and the benefits of the procedure. I think he has a good understanding of this. I think we can proceed as planned. History of Present Illness History of Present Illness Chief Complaint: Screening colonoscopy Narrative: 67 y/o male with history of GERD, CAD (STEMI s/p stent 2021 at [facility]), hyperlipidemia and HTN presents for colonoscopy screening pre-op. His last screening was in 2011 and was unremarkable. He reports a second-degree family history of colon cancer in his maternal grandfather. He denies any changes in bowel habits including bloody or black tarry stools, abdominal pain, diarrhea or constipation. He denies constitutional symptoms. He denies chest pain, palpitations, dyspnea or dyspnea with exertion. He denies prior history or family history of adverse reactions or complications with anesthesia. The patient denies any history of stroke, , seizures, bleeding or clotting disorders. He denies having any implanted metal in his body. His previous attempt at scheduled colonoscopy was canceled because of an upper respiratory tract infection that is since cleared. Otherwise, there have been no significant interval history or physical changes PFSH All Active Problems (Updated 10/30/23 @ 19:00 by Brady Tracey MD) Screen for colon cancer (Acute) Osteoarthritis of spine (Chronic) Hearing loss (Chronic) Left sie. Gastroesophageal reflux disease with esophagitis (Chronic) CAD (coronary artery disease) (Chronic) 01/2022, STEMI, tx at [facility], s/p stent to RCA Essential hypertension (Acute) Hyperlipidemia (Acute) STEMI (ST elevation myocardial infarction) (Acute) RCA stent. 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 (Acute) New onset headache (Acute) Medical History (Updated 10/30/23 @ 19:00 by Brady Tracey MD) COVID-19 (~12/16/21) Seborrheic dermatitis Cole's esophagus Surgical History (Updated 10/31/23 @ 08:08 by Marilyn Butler) H/O esophagogastroduodenoscopy H/O colonoscopy Cholecystectomy (~1987) Family History Mother Heart disease Lymphoma Father , 80 Essential hypertension Depression Hyperlipidemia Neoplasm SKIN Stroke Grandfather Neoplasm COLON Grandmother Depression Social History Smoking/Tobacco Use Status: Never Second Hand Exposure: Yes Smoking risk assessment performed?: Yes Alcohol Intake: current Alcohol Intake frequency: a few times a week Alcohol type: beer and hard liquor Drug use: Never Substance use type: does not use Details: alcohol: t-2, one drink Caregiver/Support person: No Household members: spouse Housing: house Communication Needs: Hard of Hearing Do you need help understanding health information?: Rarely 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 Pets and animals: Yes Pets and animals: cat(s) Sexually active: Yes Do you think of yourself as: straight/heterosexual Current gender identity: male What is your relationship status?: How often do you talk on the phone with friends or family?: twice per week How often do you get together with friends or relatives?: once per week How often do you attend caodaism or mandaeism services?: decline to answer Do you belong to any clubs or organized social groups?: no Panel score (0-1 are the most socially isolated patients): 2 Kristina/Muslim: Scientologist Special kristina needs: No Seatbelt use: always Helmet use: No Drive intox or ride w/intox tow car driver: No Do you feel safe at home: Yes Do you feel safe in your relationship?: Yes Additional Social history: unable to assess privatley Meds Allergies and Home Medications Allergies Allergy/AdvReac Type Severity Reaction Status Date / Time Penicillins Allergy Severe HIVES Verified 10/31/23 08:06 Home Medications Medication Instructions Recorded Confirmed Type multivitamin (Daily Multi-Vitamin 2 ea PO DAILY 05/15/13 10/31/23 History tablet) tadalafil 10 mg tablet (Cialis) 10 mg PO PRN #8 tabs 12/11/17 10/31/23 Rx cholecalciferol (vitamin D3) 25 25 mcg PO DAILY 05/01/22 10/31/23 History mcg (1,000 unit) capsule coenzyme Q10 10 mg capsule (Co 10 mg PO DAILY 05/01/22 10/31/23 History Q-10) vitamin B complex (B 1 tab PO DAILY 05/01/22 10/31/23 History Complex-Vitamin B12 tablet) aspirin 81 mg tablet,delayed 81 mg PO DAILY #30 tabs 05/08/22 10/31/23 Rx release (Adult Aspirin Regimen) nitroglycerin 0.4 mg sublingual 0.4 mg sublingual Q5M PRN chest 05/08/22 10/31/23 Rx tablet (Nitrostat) pain #14 tabs atorvastatin 40 mg tablet 40 mg PO DAILY #90 tabs 03/22/23 10/31/23 Rx metoprolol succinate 50 mg 50 mg PO DAILY #90 tabs 03/22/23 10/31/23 Rx tablet,extended release 24 hr pantoprazole 40 mg tablet,delayed 40 mg PO DAILY #90 tabs 03/22/23 10/31/23 Rx release sertraline 50 mg tablet 50 mg PO DAILY #90 tab-caps 03/22/23 10/31/23 Rx lisinopril 40 mg tablet 40 mg PO DAILY #90 tabs 04/05/23 10/31/23 Rx Exam Const General: cooperative, healthy appearing and not in acute distress Neck Neck: normal visual inspection, no lymphadenopathy and supple Resp Effort & Inspection: normal respiratory effort Auscultation: clear to auscultation bilaterally Cardio Jugular venous pressure: no JVD Rate: regular rate Rhythm: regular rhythm Heart Sounds: S1 normal and S2 normal Neuro General: patient alert, patient awake and patient oriented x3 Psych Appearance: grossly normal
--- NOTE | 2023-10-30 19:01 | W.PM.DSUDISC ---
Date of service: 10/31/23 Time of Service: 09:13 Discharge Plan Disposition Patient Disposition: Home Condition: Good Discharge Details Reason For Visit: Screening colonoscopy Attending Provider: Brady Tracey Primary Care Provider: Juvenal Campos Home Meds and New Rx's Prescriptions: Continued cholecalciferol (vitamin D3) 25 mcg (1,000 unit) capsule 25 mcg PO DAILY vitamin B complex [B Complex-Vitamin B12] Tablet 1 tab PO DAILY coenzyme Q10 [Co Q-10] 10 mg capsule 10 mg PO DAILY multivitamin [Daily Multi-Vitamin] 1 EACH tablet 2 ea PO DAILY tadalafil [Cialis] 10 MG tablet 10 mg PO PRN Qty: 8 12RF aspirin [Adult Aspirin Regimen] 81 mg tablet,delayed release (DR/EC) 81 mg PO DAILY Qty: 30 0RF nitroglycerin [Nitrostat] 0.4 mg tablet, sublingual 0.4 mg sublingual Q5M PRN (Reason: chest pain) Qty: 14 0RF Rx Instructions: do not exceed 3 doses per episode atorvastatin 40 mg tablet 40 mg PO DAILY Qty: 90 3RF metoprolol succinate 50 mg tablet extended release 24 hr 50 mg PO DAILY Qty: 90 3RF pantoprazole 40 mg tablet,delayed release (DR/EC) 40 mg PO DAILY Qty: 90 3RF sertraline 50 mg tablet 50 mg PO DAILY Qty: 90 4RF lisinopril 40 mg tablet 40 mg PO DAILY Qty: 90 3RF Discontinued bisacodyl [Dulcolax (bisacodyl)] 5 mg tablet,delayed release (DR/EC) 5 mg PO ONCE Qty: 4 0RF Rx Instructions: Take per colonoscopy instructions provided by ordering providers office polyethylene glycol 3350 17 gram/dose powder 17 g PO ONCE Qty: 238 0RF Rx Instructions: Take per colonoscopy instructions provided by ordering providers office Discharge Instructions Instructions: Colorectal Polyps (GEN) Additional Instructions: Jerad, we were able to complete your colonoscopy today without any issues. I did find 1 small polyp. I removed this completely. I will be in touch when I have the results of the pathology report with my recommendations for your next colonoscopy. If you have any questions in the meantime, please do not hesitate to call. 1. If tolerated, consume a soft, low fiber diet for 1-2 days. [address] Do not drive, drink alcohol, operate machinery, make critical decisions, or do activities that require coordination or balance for 24 hours. 3. Because air was put into your colon during the procedure, expelling air from your rectum (passing gas or farting) is normal. 4. You may not have a bowel movement for 1-3 days because of the colonoscopy prep. This is normal. 5. Go directly to the emergency room if you notice any of the following: Develop chills (warm to touch), or if you have a thermometer and your temperature is above 101 Difficulty breathing or difficultly swallowing Persistent vomiting Severe abdominal pain, other than gas cramps Severe chest pain Black, tarry stools Any bleeding ? exceeding one tablespoon 6. Call your physician if the site where your intravenous was started becomes red, swollen, painful, and warm to touch. 7. Your physician has reviewed your pre-procedure medications. Please continue to take those medications as previously ordered. You will be given specific information/education regarding any changes to your medications before leaving. Activity:: Activity as Tolerated Diet:: As Tolerated Discharge Orders Discharge Orders: Discharge Order (Routine); Ordered 10/18/23 Ordered By: Samra Davison DS: Diagnosis Discharge Diagnosis (1) Screen for colon cancer: Status: Acute Asessment and Plan: Follow-up on polypectomy results
--- NOTE | 2023-10-30 19:02 | W.COLOREPORT ---
Date of service: 10/31/23 Time of Service: 09:15 Colonoscopy Report Date of procedure: 10/31/23 Pre-op diagnosis general: Screening colonoscopy Post-op diagnosis procedure note: other (Colon polyp) Procedure: Colonoscopy with polypectomy Surgeon: Brady Tracey Anesthesia Type: General:No Airway Estimated blood loss (mL): 5 Pathology: other (0.25 cm polyp at 30 cm) Complications: None Disposition: same day Indications: Jerad is a 67-year-old male who is here for another screening colonoscopy. He has a second-degree relative with a history of colorectal cancer. Prep: Miralax/Dulcolax Procedure Start Time: 08:44 Procedure End Time: 09:07 Retraction Time: 18 Findings: 0.25 cm polyp at 30 cm Procedure Description: After the induction of monitored anesthetic care, and with the patient in left lateral decubitus position, I began by performing an external anorectal exam.? Perineum and skin were normal, as was the anal verge.? There was no evidence of external hemorrhoids.? Next, I performed a digital rectal exam.? I did not appreciate any abnormal findings.? Next, I advanced a colonoscope into the rectal vault.? I performed retroflexion. this appeared normal.? Using insufflation, I then advanced the colonoscope beyond the rectal folds and into the sigmoid colon before advancing towards the cecum.? The quality of the prep was adequate.? The scope was noted to be in the cecum by identification of the ileocecal valve and appendiceal orifice.? I then began withdrawing the colonoscope using repeated irrigation as necessary for full evaluation of the colonic mucosa. Around 30 cm from the anal verge I identified a 0.25 cm polyp. ?It appeared sessile in character. ?I was able to remove this with a cold forcep polypectomy. ?I examined the site, and there was minimal bleeding. ?Once this was completed, I continued to withdraw the scope and examine the remainder of the colonic mucosa.?Once the scope was withdrawn to the level of the rectum, great care was taken to examine portions of the rectal folds.? Finally, the scope was withdrawn and the patient was brought to the same-day surgery recovery unit as the anesthetic wore off. ?The findings and instructions were shared with the patient prior to discharge. [place] Bowel Prep [place] Bowel Prep Right Colon: 2 Left Colon: 2 Transverse Colon: 2 Total Score: 6
[2023-10-31 08:10] VITALS: BP 180/107; PULSE 74; RESP 16; TEMP 36.8; O2SAT 98
[2023-10-31] MEDS: Lactated Ringers 1,000 ML 80 ML IV (08:20)
--- NOTE | 2023-10-31 08:25 | W.ANESPRE ---
General Info Date of Service Date Performed: 10/31/23 Height: 5 ft 10 in Weight: 98.4 kg Body Mass Index (BMI): 31.1 Surgical Procedure: Operation Date: 10/31/23 08:35 Proposed Procedure Side Surgeon genny Tracey MD Meds Allergies and Home Medications Allergies Allergy/AdvReac Type Severity Reaction Status Date / Time Penicillins Allergy Severe HIVES Verified 10/31/23 08:06 Home Medication Medication Instructions Recorded multivitamin (Daily Multi-Vitamin 2 ea PO DAILY 05/15/13 tablet) tadalafil 10 mg tablet (Cialis) 10 mg PO PRN #8 tabs 12/11/17 cholecalciferol (vitamin D3) 25 25 mcg PO DAILY 05/01/22 mcg (1,000 unit) capsule coenzyme Q10 10 mg capsule (Co 10 mg PO DAILY 05/01/22 Q-10) vitamin B complex (B 1 tab PO DAILY 05/01/22 Complex-Vitamin B12 tablet) aspirin 81 mg tablet,delayed 81 mg PO DAILY #30 tabs 05/08/22 release (Adult Aspirin Regimen) nitroglycerin 0.4 mg sublingual 0.4 mg sublingual Q5M PRN chest 05/08/22 tablet (Nitrostat) pain #14 tabs atorvastatin 40 mg tablet 40 mg PO DAILY #90 tabs 03/22/23 metoprolol succinate 50 mg 50 mg PO DAILY #90 tabs 03/22/23 tablet,extended release 24 hr pantoprazole 40 mg tablet,delayed 40 mg PO DAILY #90 tabs 03/22/23 release sertraline 50 mg tablet 50 mg PO DAILY #90 tab-caps 03/22/23 lisinopril 40 mg tablet 40 mg PO DAILY #90 tabs 04/05/23 Current Visit Medications: Current Medications Generic Name Dose Route Start Last Admin Trade Name Freq PRN Reason Stop Dose Admin Hyoscyamine Sulfate 0.125 mg 10/18/23 10:58 Hyoscyamine 0.125 Mg Sl/Oral/Chew SL 11/17/23 10:57 DIRECTED PRN Ringer's Solution 1,000 mls @ 80 mls/hr 10/18/23 06:00 IV 11/16/23 23:59 INFUSION TRACY IV Miscellaneous Supplies 1 each 10/18/23 06:00 Iv Access IV 11/16/23 23:59 DIRECTED TRACY Ondansetron HCl 4 mg 10/30/23 19:03 Ondansetron 4 Mg/2 Ml Vial IVP 11/29/23 19:02 Q4H PRN PRN Nausea / Vomiting Sodium Chloride 0 ml 10/18/23 06:00 Normal Saline Flush 10 Ml Syr IV 11/16/23 23:59 PRN PRN Sodium Chloride 0 ml 10/18/23 06:00 Normal Saline 10 Ml Vial IJ 11/16/23 23:59 DIRECTED PRN Sterile Water 0 ml 10/18/23 06:00 Water,Injection,Sterile 10 Ml Vial IJ 11/16/23 23:59 DIRECTED PRN PFSH Active Problems Active Problems: Problem Status Onset Code Screen for colon cancer Z12.11 Osteoarthritis of spine Hearing loss H91.90 Gastroesophageal reflux disease with esophagitis K21.0 CAD (coronary artery disease) I25.10 Essential hypertension I10 Hyperlipidemia E78.5 STEMI (ST elevation myocardial infarction) I21.3 Leg cramps R25.2 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 states he gets whitecoat syndrome with BP in hospitals. Pt. reports last BM was brownish liquid yesterday afternoon Surgical History Surgical History (Updated 10/31/23 @ 08:08 by Marilyn Butler) H/O esophagogastroduodenoscopy H/O colonoscopy Cholecystectomy (~1987) Tobacco Smoking/Tobacco Use Status: Never Passive smoking exposure: Yes Second hand exposure: Yes Alcohol Alcohol Intake: current Alcohol intake frequency: a few times a week Alcohol type: beer and hard liquor Substance Use Substance use: Never Substance use type: does not use Details: alcohol: t-2, one drink Vital Signs and Lab Results Vital Signs Most Recent Vital Signs in EMR: Most Recent Vital Signs Temp Pulse Resp BP Pulse Ox 36.8 C 74 16 180/107 H 98 10/31/23 08:10 10/31/23 08:10 10/31/23 08:10 10/31/23 08:10 10/31/23 08:10 Lab Results Blood Type / Crossmatch: No Data to Display Complete Blood Count: No Data to Display Complete Metabolic Panel: No Data to Display Liver Function Panel: No Data to Display Coagulation Panel: No Data to Display Cardiac Panel: No Data to Display Arterial Blood Gas: No Data to Display Venous Blood Gas: No Data to Display Pancreas Panel: No Data to Display Thyroid Panel: No Data to Display Infectious Disease: No Data to Display Blood Cultures: No Data to Display Toxicology Panel: No Data to Display Imaging and Studies Imaging and Studies Study information below may be from another EMR and interpreted by another provider. Please see original notes in EMR for more complete details. EKG Summary: Conclusion Sinus bradycardia...rate< 60 Ventricular premature complex...V complex w/ short R-R interval Nonspecific intraventricular conduction delay...QRSd >115mS, not LBBB/RBBB Inferior infarct, old...Q >35mS, II III aVF. 02/24/22 Anesthesia Assessment and Plan Anesthesia History Personal History: No History of Anesthesia Complications Family History: No Family History of Anesthesia Complications Exercise Tolerance Exercise Tolerance: Metabolic Equivalents>4 Pertinent Negatives Pertinent Negatives: No Major Cardiovascular Symptoms or Complaints and No Major Pulmonary Symptoms or Complaints Cardiac & Pulmonary Exam Cardiac Exam: Normal S1/S2 Heart Sounds Pulmonary Exam: Clear Bilateral Breath Sounds Implantable Cardiac Device Does patient have a Pacemaker or an ICD?: No Airway Exam Known Difficult Airway: No Mallampati Class: 2 Mouth Opening: Normal (> 3cm) Thyromental Distance: Greater than 3 cm Neck Range of Motion: Full ROM Neck Circumference: Normal Teeth Condition: Normal Dentition ASA Classification ASA Score: ASA 2 Emergency Case?: No NPO Status NPO Status: NPO Clears >2 hours, Solids >8 hours Anesthesia Plan Resuscitation Status: Full Code Anesthesia Technique: General Anesthesia Airway Planned: Natural Airway Monitors Used: Standard Monitors
[2023-10-31 08:29] VITALS: BMI 31.1
--- NOTE | 2023-10-31 09:04 | BOWEL_PTH ---
PATIENT: Jerad Alexis LOC: [facility] U#:[id number] AGE/SX: 67/M ROOM: RE10/31/[address]: Brady Tracey MD : [id number] BED: DIS: 10/31/2023 SPEC #: [id number] RECD: 10/31/23 12:38 STATUS: [facility]DINE REQ #: [id number] DICKSON: 10/31/23 09:[address]: Brady Tracey DEPT: Surgical Specimen RECD BY: Loly Olivo ENTERED: 10/31/23 12:38 SP TYPE: Bowel OTHR DR: Juvenal Wright DNP Tissues: 1 - BIOPSY BOWEL Procedures: GROSS AND MICRO LEVEL 4 Comments: [id number]
[2023-10-31 09:11] VITALS: BP 126/65; PULSE 64; RESP 16; TEMP 36.7; O2SAT 95
[2023-10-31 09:40] VITALS: BP 143/89; PULSE 62; RESP 18; TEMP 36.4; O2SAT 98
--- NOTE | 2023-10-31 09:44 | W.ANESPOSTOP ---
Postoperative Evaluation Date, Time and Location Date Performed: 10/31/23 Time Performed: 09: Patient Location: Day Surgery Unit Vital Signs Most Recent Imported Vital Signs: Most Recent Vital Signs Temp Pulse Resp BP Pulse Ox 36.7 C 64 16 126/65 95 10/31/23 09:11 10/31/23 09:11 10/31/23 09:11 10/31/23 09:11 10/31/23 09:11 Pain Score Most Recent Pain Score: Most Recent Pain Score Pain Level 0 10/31/23 09:11 Assessment Mental Status: Awake (Alert & Oriented to Patient Baseline) Airway and Respiratory Function: Patent airway with normal (patient baseline) respiratory exam Cardiovascular Function: Hemodynamically Stable Hydration Status: Adequately Hydrated Nausea & Vomiting: No Nausea or Vomiting Pain: Pt. Denies Any Pain Peripheral Nerve Block: Patient did not receive a nerve block
== END 2023-10-31 09:53 | disposition home or self-care (01) ==
LOC: SUR 07:48
PROVIDERS: PCP Nurse Practitioner Family; Visit Provider Surgery
PROC: 0DJD8ZZ Inspection of Lower Intestinal Tract, Via Natural or Artificial Opening Endoscopic (ICD-10-PCS; CPT 45378; principal; 2023-10-31 08:30)
DX: Z12.11 Encounter for screening for malignant neoplasm of colon (principal); K63.5 Polyp of colon; Z80.0 Family history of malignant neoplasm of digestive organs; I10 Essential (primary) hypertension; I25.10 Atherosclerotic heart disease of native coronary artery without angina pectoris
CPT/HCPCS: 45380; 88305

== ENCOUNTER 2024-08-05 08:51 | Outpatient (REF) | payer MEDICARE, SELFPAY ==
[2024-08-05 13:50] LABS: ALT 53 U/L (16-63); AST 36 U/L (15-37); Alkaline Phosphatase 90 U/L (46-116); Anion Gap 5.9 mmol/L (3-11); BUN 22 mg/dL (7-18); Bilirubin, Total 0.57 mg/dL (0.2-1.0); CO2 32.1 mmol/L (21.0-32.0); CREATININE 1.2 mg/dL (0.70-1.30); Calcium 9.3 mg/dL (8.5-10.1); Calculated LDL 90 mg/dL (<100); Chloride 102 mmol/L (98-107); Cholesterol 158 mg/dL (<200); Estimated GFR 66.28 (mL/min/1.73m2); Glucose 97 mg/dL (74-106); HDL Cholesterol 50 mg/dL (40-60); Potassium 4.4 mmol/L (3.5-5.1); Sodium 140 mmol/L (136-145); Total Protein 7.4 g/dL (6.4-8.2); Triglyceride 90 mg/dL (<150)
== END 2024-08-05 08:52 | disposition home or self-care (01) ==
LOC: LBN 08:51
PROVIDERS: PCP Nurse Practitioner Family; Visit Provider Nurse Practitioner Family
DX: E78.5 Hyperlipidemia, unspecified (principal); B35.3 Tinea pedis; K21.00 Gastro-esophageal reflux disease with esophagitis, without bleeding
CPT/HCPCS: 80053; 80061

== ENCOUNTER 2025-01-11 14:10 | Outpatient (CLI) | payer MEDICARE, SELFPAY ==
--- NOTE | 2025-01-11 14:00 | DI.RAD_ITS ---
Exam(s) XR TIB/FIB RT EXAM: XR TIB/FIB RT CLINICAL HISTORY: W19.XXXA,M79.604,M79.89 Fall,pain in right leg, soft tissue disorders. TECHNIQUE: 2D digital imaging was performed. COMPARISON: No exams were available for comparison FINDINGS: Two views No evidence of fracture of the tibia and fibula. Bone density normal. No osseous lesions. There appears to be normal soft tissue swelling along the lateral aspect calf. IMPRESSION: Soft tissue findings as above. No acute osseous findings in the right tibia and fibula. DATA REPOSITORY: RADIATION DOSE DELIVERED:
--- NOTE | 2025-01-11 14:00 | DI.US_ITS ---
Exam(s) US LOWER EXTREMITY VENOUS RT EXAM: US LOWER EXTREMITY VENOUS RT CLINICAL HISTORY: W19.XXXA,M79.604,M79.89 Fall,pain in right leg, soft tissue disorders TECHNIQUE: Grayscale, color, and doppler imaging of the deep venous system of the right lower extrem ity was performed. COMPARISON: US ECHOCARDIOGRAM TRANSTHORACIC from 02/25/2022 FINDINGS: There is no evidence of intraluminal thrombus and there is normal compression and augmentation demons trated within the common femoral vein, femoral vein, and popliteal vein. In the ipsilateral calf the interrogated veins also exhibit normal compression/ augmentation properti es. The ipsilateral saphenofemoral junction is patent. In the proximal lateral aspect of the right thigh there is a E finding measuring approximately 5 x 1 cm which corresponds to an area of lump after fall and is most probably hematoma. IMPRESSION: 1. No evidence of DVT in the right lower extremity. 2. Right lateral thigh hematoma which corresponds to a visible/palpable lump post injury. DATA REPOSITORY:
--- NOTE | 2025-01-11 14:25 | DI.RAD_ITS ---
Exam(s) XR KNEE RT 3V AP,LAT,DAVID EXAM: XR KNEE RT 3V AP,LAT,DAVID CLINICAL HISTORY: W19.XXXA,M79.604,M79.89 Fall,pain in right leg, soft tissue disorders. TECHNIQUE: 2D digital imaging was performed. COMPARISON: CR RIGHT KNEE COMPLETE from 04/05/2010 FINDINGS: 3 views No evidence of acute fracture nor prominent joint effusion.. Minimal degenerative changes. Bone den sity normal. No osseous lesions. On the lateral view the distal quadriceps tendon appears incomplete. IMPRESSION: Distal quadriceps tendon appears abnormal, and correlation any clinical signs of distal quadriceps te ndon tear is recommended. No acute osseous findings. DATA REPOSITORY: RADIATION DOSE DELIVERED:
== END 2025-01-11 14:30 ==
LOC: DI 14:11
PROVIDERS: PCP Nurse Practitioner Family; Visit Provider Nurse Practitioner Family
DX: W19.XXXA Unspecified fall, initial encounter (principal); M79.604 Pain in right leg; M79.89 Other specified soft tissue disorders
CPT/HCPCS: 73562; 73590; 93971

== ENCOUNTER 2025-03-30 17:51 | Outpatient (REF) | payer MEDICARE, SELFPAY ==
[2025-03-30 22:32] LABS: PSA, Screening 1.5 ng/mL (<=4.5)
== END 2025-03-30 17:52 | disposition home or self-care (01) ==
LOC: LBN 17:51
PROVIDERS: PCP Nurse Practitioner Family; Visit Provider Nurse Practitioner Family
DX: Z12.5 Encounter for screening for malignant neoplasm of prostate (principal)
CPT/HCPCS: 84153

== ENCOUNTER 2025-09-29 09:22 | Outpatient (CLI) | payer MEDICARE, SELFPAY ==
[2025-09-29 13:59] LABS: HCT 40.0 % (40.0-50.0); HGB 13.1 g/dL (13.5-17.5); MCH 28.9 pg (27.0-33.0); MCHC 32.8 % (32.0-36.0); MCV 88 fL (80-95); MPV 10.1 fL (8.0-11.0); Platelet Count 281 10^3/uL (130-400); RBC 4.53 10^6/uL (4.36-5.78); RDW 13.2 % (11.8-14.1); RDW-SD 42.8 fL; WBC 5.69 10^3/uL (4.4-10.8)
[2025-09-29 14:29] LABS: Hemoglobin A1C 5.6 % (<5.7)
[2025-09-29 14:35] LABS: ALT 47 U/L (16-63); AST 32 U/L (15-37); Albumin 3.8 g/dL (3.4-5.0); Alkaline Phosphatase 92 U/L (46-116); Anion Gap 6.6 mmol/L (3-11); BUN 26 mg/dL (7-18); Bilirubin, Total 0.4 mg/dL (0.2-1.0); CO2 32.4 mmol/L (21.0-32.0); Calcium 9.2 mg/dL (8.5-10.1); Calculated LDL 156 mg/dL (<100); Chloride 101 mmol/L (98-107); Cholesterol 243 mg/dL (<200); Estimated GFR 81.98 (mL/min/1.73m2); Glucose 98 mg/dL (74-106); HDL Cholesterol 41 mg/dL (>or=40); Potassium 4.0 mmol/L (3.5-5.1); Sodium 140 mmol/L (136-145); TSH (W/Ref FT4) 2.94 uIU/mL (0.36-3.74); Total Protein 7.7 g/dL (6.4-8.2); Triglyceride 231 mg/dL (<150)
== END 2025-09-29 09:23 | disposition home or self-care (01) ==
LOC: LOS 09:22
PROVIDERS: PCP Nurse Practitioner Family; Visit Provider Nurse Practitioner Family
DX: E78.5 Hyperlipidemia, unspecified (principal); R73.9 Hyperglycemia, unspecified; N52.9 Male erectile dysfunction, unspecified
CPT/HCPCS: 36415; 80053; 80061; 85027; 83036; 84443